=== PATIENT | male | born 1955 | race Hispanic/Latino ===

== ENCOUNTER 2016-06-09 15:27 | Emergency (ER) | payer MEDICARE ==
[2016-06-09 17:04] LABS: Hematocrit 36.2 % (35.5-45.6); Mean Corpuscular HGB Conc 33 % (32-34); Mean Corpuscular Hemoglobin 29 pg (28-32); Mean Corpuscular Volume 87 fl (84-94); Platelet Count 442 K/mm3 (140-440); Red Blood Count 4.17 M/mm3 (3.65-5.03); Red Cell Distribution Width 15.9 % (13.2-15.2); White Blood Count 8.4 K/mm3 (4.5-11.0)
--- NOTE | 2016-06-09 17:15 | Emergency Department Report ---
Chief Complaint: Chest Pain Stated Complaint: CHEST PAIN Time Seen by Provider: 06/09/16 17:03 - HPI History of Present Illness: Patient is a 61-year-old male who presents to ED complaining of left-sided pressure sharp type chronic chest pain and chronic hip leg and neck pain. Patient states he has an appointment with pain management doctor Evelyne on Thursday. Patient describes pain as throbbing and just all over his low back hips leg neck and arms. She denies any weakness headaches blurry vision. Patient states he he is having a panic attack due to his history of anxiety. Patient denies fever chills nausea vomiting abdominal pain shortness of breath. - ROS Review of Systems: As noted in HPI - Exam Vital Signs: Vital Signs 06/09/16 15:33 Temperature 98.5 F Pulse Rate 104 H Respiratory 20 Rate Blood Pressure 134/96 O2 Sat by Pulse 95 Oximetry Physical Exam: GENERAL: Alert and oriented x3, no apparent distress, Normal Gait, atraumatic. LUNGS: Symetrical with respiration, No wheezing, no rales or crackles, CTAB. HEART: S1, S2 present, regular rate and rhythm without murmur, no rubs, no gallops. ABDOMEN: No organomegaly was noted,Positive bowel sounds, soft, and non- distended. . Nontender to palpation on all Quadrants, NO CVA tenderness. MSE screening note: Focused history and physical exam performed. Due to findings the following was ordered: ED Medical Decision Making - Medical Decision Making Pulse 104 otherwise vital signs stable. Patient is alert and oriented 3. Patient is on any distress. Labs pending. EKG normal sinus rhythm. Patient to be seen by ED physician. ED Disposition for MSE Condition: Stable
[2016-06-09 17:21] LABS: Anion Gap 19 mmol/L; BUN/Creatinine Ratio 13.75; Blood Urea Nitrogen 11 mg/dL (9-20); Calcium 9.8 mg/dL (8.4-10.2); Carbon Dioxide 28 mmol/L (22-30); Chloride 96.3 mmol/L (98-107); Glucose 94 mg/dL (75-100); Potassium 4.7 mmol/L (3.6-5.0); Sodium 139 mmol/L (137-145)
[2016-06-10] MEDS ORDERED: ATIVAN PO ONE (03:46)
[2016-06-10] MEDS ORDERED: DILAUDID IM ONE (03:46)
--- NOTE | 2016-06-10 03:53 | Emergency Department Report ---
ED General Adult HPI - General Chief complaint: Chest Pain Stated complaint: CHEST PAIN Time Seen by Provider: 06/10/16 02:29 Source: patient Mode of arrival: Ambulatory Limitations: No Limitations - History of Present Illness Initial comments: 61-year-old male presents to the emergency department complaining of exacerbation of his chronic low back pain and panic attacks. Patient states the past 2 days been having pain in his lower back that radiates to his bilateral hips and down his left leg. He also reports pain in both shoulders. Patient reports he has been in pain management before but is currently not seeing anyone. Patient reports the pain is causing his panic attacks. He reports tightness in his chest and difficulty breathing. He states he was unable to attend any group sessions yesterday due to symptoms. Patient is a resident at the [facility]. There are no other complaints. -: Gradual, days(s) (2) Location: back, left, right, upper extremity, lower extremity Severity scale (0 -10): 10 Quality: aching Consistency: constant Improves with: none Worsens with: none Associated Symptoms: chest pain, shortness of breath Treatments Prior to Arrival: none - Related Data Previous Rx's Medication Instructions Recorded Last Taken Type Acetaminophen with Codeine 1 tab PO Q6HR #12 tab 05/19/16 Unknown Rx [Acetaminophen-Codeine #4 TAB] HYDROcodone/APAP 5-325 [[place] 1 each PO Q6HR PRN #30 tablet 06/10/16 Unknown Rx 5/325] LORazepam [Ativan] 1 mg PO BID #14 tab 06/10/16 Unknown Rx Allergies Allergy/AdvReac Type Severity Reaction Status Date / Time aspirin Allergy Angioedema Verified 12/26/13 11:15 ibuprofen Allergy Angioedema Verified 12/26/13 11:15 naproxen [From Naprosyn] Allergy Angioedema Verified 12/26/13 11:15 NSAIDS (Non-Steroidal Allergy Angioedema Verified 12/26/13 11:15 Anti-Inflamma ED Review of Systems ROS: Stated complaint: CHEST PAIN Other details as noted in HPI Comment: All other systems reviewed and negative Respiratory: shortness of breath Cardiovascular: chest pain Musculoskeletal: as per HPI, back pain ED Past Medical Hx - Past Medical History Previous Medical History?: Yes Hx Diabetes: Yes Hx Psychiatric Treatment: Yes Additional medical history: high cholesterol, decreased hearing acuity, anxiety , chronic pain - Surgical History Past Surgical History?: Yes Additional Surgical History: right knee, back surgery - Family History Family history: no significant - Social History Smoking Status: Never Smoker Substance Use Type: None - Medications Home Medications: Home Medications Medication Instructions Recorded Confirmed Last Taken Type Acetaminophen with Codeine 1 tab PO Q6HR #12 tab 05/19/16 Unknown Rx [Acetaminophen-Codeine #4 TAB] HYDROcodone/APAP 5-325 [[place] 1 each PO Q6HR PRN #30 tablet 06/10/16 Unknown Rx 5/325] LORazepam [Ativan] 1 mg PO BID #14 tab 06/10/16 Unknown Rx ED Physical Exam - General Limitations: No Limitations General appearance: alert, in no apparent distress - Head Head exam: Present: atraumatic, normocephalic - Eye Eye exam: Present: normal appearance, PERRL, EOMI - ENT ENT exam: Present: normal exam, normal orophraynx, mucous membranes moist - Neck Neck exam: Present: normal inspection, full ROM. Absent: tenderness - Respiratory Respiratory exam: Present: normal lung sounds bilaterally. Absent: respiratory distress - Cardiovascular Cardiovascular Exam: Present: regular rate, normal rhythm, normal heart sounds - GI/Abdominal GI/Abdominal exam: Present: soft, normal bowel sounds. Absent: distended, tenderness - Extremities Exam Extremities exam: Present: normal inspection, full ROM. Absent: tenderness - Back Exam Back exam: Present: normal inspection, full ROM, tenderness, paraspinal tenderness (lumbar). Absent: vertebral tenderness - Neurological Exam Neurological exam: Present: alert, oriented X3. Absent: motor sensory deficit - Skin Skin exam: Present: warm, dry, intact ED Course Vital Signs 06/09/16 06/09/16 06/10/16 15:33 22:23 00:57 Temperature 98.5 F 98.0 F 98.4 F Pulse Rate 104 H 89 88 Respiratory 20 20 18 Rate Blood Pressure 134/96 117/83 Blood Pressure 139/79 [Left] O2 Sat by Pulse 95 99 97 Oximetry 06/10/16 06/10/16 06/10/16 01:25 01:43 03:11 Temperature Pulse Rate 79 78 Respiratory 18 18 18 Rate Blood Pressure Blood Pressure 136/70 139/79 [Left] O2 Sat by Pulse 100 100 97 Oximetry ED Medical Decision Making - Lab Data Result diagrams: 06/09/16 16:49 06/09/16 16:49 - EKG Data -: EKG Interpreted by Me EKG shows normal: sinus rhythm, axis, intervals, QRS complexes, ST-T waves Rate: normal - EKG Data When compared to previous EKG there are: previous EKG unavailable Interpretation: normal EKG - Medical Decision Making Laboratory results reviewed and discussed with the patient. Patient has had a normal ECG and 2 negative troponins, making a cardiac etiology of his chest pain unlikely. Giving the patient an oral dose of Ativan and then intramuscular dose of Dilaudid. Patient will be discharged to follow up with pain management. - Differential Diagnosis exacerbation of chronic pain, anxiety, atypical chest pain Critical care attestation.: If time is entered above; I have spent that time in minutes in the direct care of this critically ill patient, excluding procedure time. ED Disposition Clinical Impression: Anxiety Chronic low back pain Qualifiers: Back pain laterality: bilateral Sciatica presence: without sciatica Qualified Code(s): M54.5 - Low back pain; G89.29 - Other chronic pain Disposition: DISCHARGED TO HOME OR SELFCARE Is pt being admited?: No Condition: Stable Instructions: Chronic Back Pain (ED), Anxiety (ED) Prescriptions: LORazepam [Ativan] 1 mg PO BID #14 tab HYDROcodone/APAP 5-325 [[place] 5/325] 1 each PO Q6HR PRN #30 tablet PRN Reason: Pain Referrals: PRIMARY CARE,MD [Primary Care Provider] - 3-5 Days Time of Disposition: 03:54
[2016-06-10 04:12] VITALS: BP 104/68
== END 2016-06-10 04:13 | disposition home or self-care (01) ==
LOC: ED 15:27
DX: M54.5 Low back pain (principal); G89.29 Other chronic pain; R07.9 Chest pain, unspecified; F41.9 Anxiety disorder, unspecified; E11.9 Type 2 diabetes mellitus without complications; E78.00 Pure hypercholesterolemia, unspecified; Z88.6 Allergy status to analgesic agent
CPT/HCPCS: 36415; 80048; 84484; 85025; 93005; 93010; 96372; 99284; J1170

== ENCOUNTER 2016-06-18 08:40 | Inpatient (IN) | payer MEDICARE ==
[2016-06-18] MEDS ORDERED: DUONEB 0.5 MG-3 MG/3 ML SOLN IH ONE ×2 (11:43)
[2016-06-18] MEDS ORDERED: NACL 0.9% 500 ML 500 ML IV ONE (11:50)
[2016-06-18] MEDS ORDERED: NACL 0.9% 1000 ML 1,000 ML IV ONE (11:50)
[2016-06-18] MEDS ORDERED: NACL 0.9% 1000 ML 1,000 ML ONE (12:21)
[2016-06-18] MEDS ORDERED: NACL 0.9% 500 ML 500 ML ONE (12:21)
[2016-06-18] MEDS ORDERED: LEVAQUIN 750MG/150ML 750 MG/150 ML BAG IV ONE ×2 (12:22→16:17)
[2016-06-18] MEDS ORDERED: PROVENTIL IH PRN (14:35)
--- NOTE | 2016-06-18 14:40 | History and Physical Report ---
History of Present Illness Date of examination: 06/18/16 Chief complaint: Dizziness with Shortness breath History of present illness: Dizzy Past History Past Medical History: other (as HPI) Past Surgical History: Other (right knee surgery and 2 back surgeries) Social history: full code. denies: smoking, alcohol abuse, prescription drug abuse, IV drug use Family history: CAD (father), cancer (mother) Medications and Allergies Allergies Allergy/AdvReac Type Severity Reaction Status Date / Time aspirin Allergy Angioedema Verified 12/26/13 11:15 ibuprofen Allergy Angioedema Verified 12/26/13 11:15 naproxen [From Naprosyn] Allergy Angioedema Verified 12/26/13 11:15 NSAIDS (Non-Steroidal Allergy Angioedema Verified 12/26/13 11:15 Anti-Inflamma Home Medications Medication Instructions Recorded Confirmed Last Taken Type Acetaminophen with Codeine 1 tab PO Q6HR #12 tab 05/19/16 Unknown Rx [Acetaminophen-Codeine #4 TAB] HYDROcodone/APAP 5-325 [[place] 1 each PO Q6HR PRN #30 tablet 06/10/16 Unknown Rx 5/325] LORazepam [Ativan] 1 mg PO BID #14 tab 06/10/16 Unknown Rx Active Meds: Active Medications Acetaminophen/Hydrocodone Bitart ([place] 5/325) 1 each PO Q6HR PRN PRN Reason: Pain Albuterol (Proventil) 2.5 mg IH Q4HRT PRN PRN Reason: Shortness Of Breath Albuterol/Ipratropium (Duoneb 0.5 Mg-3 Mg/3 Ml Soln) 1 ampul IH QIDRT VAL Heparin Sodium (Porcine) (Heparin) 5,000 unit SUB-Q Q8HR VAL Levofloxacin/Dextrose (Levaquin 750mg/150ml) mls @ 100 mls/hr IV Q24HR VAL PRN Reason: Protocol Lorazepam (Ativan) 1 mg PO BID VAL Review of Systems All systems: negative (as HPI and all other ROS reviewed and negative.) Exam - Physical Exam Narrative exam: Vital signs: Temperature 102.1F orally pulse 116 respirations 22 blood pressure 125/80 95% room air GEN: Ill-appearing NAD, AWAKE, ALERT, ORIENTATED 3 but he is lethargic HEENT: NCAT, PERRL, EOMI, OP CLEAR NECK: SUPPLE, NO THYROMEGALY, NO JVD, NO LAD CVS: Regular tachycardic, NORMAL S1S2 LUNGS/CHEST: Coarse breath sounds on the right, bibasilar fine crackles NORMAL CHEST EXPANSION B, GOOD AIR ENTRY B ABD: SOFT NTND, GBS, NO REBOUND OR GUARDING EXT/SKIN: NO SIGNIFICANT EDEMA OR RASH MSK: FROM X 4 EXTREMITIES NEURO: CN 2-12 GROSSLY INTACT, NO FOCAL DEFICITS PSY: CALM Results - Imaging and Cardiology EKG: image reviewed Chest x-ray: image reviewed Assessment and Plan Patient is a 61-year-old man with a history of chronic back pain who presents with lightheadedness, dizziness with progressively worse severe constant shortness of breath is started today without aggravating or relieving factors. Last couple days he was having progressively worsening productive cough of thick clear sputum. Initially he was highly altered and confused for now use waking up after IV fluids and IV antibiotics in emergency department. His temperature was found to be 102.1F. After IV antibiotics patient started to be less lethargic and give good history. He denies any chest pain, severe headaches nausea vomiting. He denies any alcohol abuse. But he has been taking narcotics and recently run out and he has appointment with her pain doctor on Thursday. UDS was ordered. Nonetheless, [facility] electronic medical record has been down so results are delayed. 1. Acute hypoxic respiratory failure: Treat with oxygen 2. Sepsis due to pneumonia: IV antibiotics, blood cultures 3. Acute encephalopathy due to above 4. Chronic pain syndrome on narcotics: Watch for withdrawals
--- NOTE | 2016-06-18 14:41 | Admit Criteria Form ---
Admission Criteria Documentation: SEPSIS and OTHER FEBRILE ILLNESS, W/O FOCAL INFECTION Clinical Indications for Admission to Inpatient Care ( Place 'X' for any and all applicable criteria): Admission is indicated for ANY ONE of the following (1)(2)(3)(4): [ ] I. Bacteremia [ ]II. Suspected or identified specific infection requiring hospitalization (eg, meningitis, endocarditis) [ ]III. Hemodynamic instability [ ]IV. Altered mental status [ ]V. Failure or unavailability of outpatient antimicrobial treatment [ ]. Hypoxemia [ ]VII. Seizures [ ]VIII. High-risk febrile neutropenia [ ]IX. Need for parenteral antibiotic in patient who is likely to abuse vascular access device (eg, injection drug user) [A](7) [ ]X. Temperature greater than 104.9 degrees F (40.5 degrees C) (oral) [ X]XI. Inpatient admission required rather than observation care because of ANY ONE of the following: [ X]1) Specific infection identified that is too severe for outpatient treatment or observation care trial [ ]2) Metabolic disorder (eg, hypoglycemia, hyperglycemia, metabolic acidosis) that is severe or persistent [ ]3) Temperature greater than 103.1 degrees F (39.5 degrees C) ( oral) that is not responsive to observation care treatment [ ]4) IV fluid to replace significant ongoing (eg, for over 24 hours) losses (> 3 L/m2 per day) [ ]5) Supplemental oxygen or respiratory treatments for over 24 hours that is performable only in acute inpatient setting [ ]6) Parenteral nutrition regimen need that must be implemented on inpatient basis [ ]7) Strict or protective (eg, laminar flow) isolation [ ]8) Other condition, treatment or monitoring requiring inpatient admission Extended stay beyond goal length of stay may be needed for(1)(3) [ ]a) Sepsis or septic shock(22) [ ]b) Positive blood cultures [ ]c) Insufficient oral intake [ ]d) High-risk febrile neutropenia(29)(30) [ ]e) Continued fever and clinical instability [ ]f) Clinically active comorbid illness (e.g,heart failure, renal failure , diabetes) The original [facility] content created by Katherine Maldonado has been revised. The portions of the content which have been revised are identified through the use of italic text or in bold, and Katherine Maldonado has neither reviewed nor approved the modified material. All other unmodified content is copyright [facility]. Please see references footnoted in the original [facility] edition 2016 Admission Criteria Met: Yes
--- NOTE | 2016-06-18 14:43 | Emergency Department Report ---
ED General Adult HPI - General Stated complaint: difficulty in breathing Time Seen by Provider: 06/18/16 14:32 - History of Present Illness Initial comments: She presents to the emergency department with difficulty in breathing. He was not aware of his fever but he was found to have a temperature of greater than 101. Denies chest pain he denies leg swelling. He's had no recent travel. He denies any calf or leg pain. He denies abdominal pain. He was not aware of any chills. He complained of some vague weakness. He did not have vertigo. -: days(s) Consistency: constant Improves with: none Worsens with: none Associated Symptoms: denies other symptoms, cough, shortness of breath - Related Data Previous Rx's Medication Instructions Recorded Last Taken Type Acetaminophen with Codeine 1 tab PO Q6HR #12 tab 05/19/16 Unknown Rx [Acetaminophen-Codeine #4 TAB] HYDROcodone/APAP 5-325 [[place] 1 each PO Q6HR PRN #30 tablet 06/10/16 Unknown Rx 5/325] LORazepam [Ativan] 1 mg PO BID #14 tab 06/10/16 Unknown Rx Allergies Allergy/AdvReac Type Severity Reaction Status Date / Time aspirin Allergy Angioedema Verified 12/26/13 11:15 ibuprofen Allergy Angioedema Verified 12/26/13 11:15 naproxen [From Naprosyn] Allergy Angioedema Verified 12/26/13 11:15 NSAIDS (Non-Steroidal Allergy Angioedema Verified 12/26/13 11:15 Anti-Inflamma ED Review of Systems ROS: Stated complaint: Other details as noted in HPI Constitutional: denies: chills, fever Eyes: denies: eye pain, eye discharge, vision change ENT: denies: ear pain, throat pain Respiratory: cough, shortness of breath, wheezing Cardiovascular: denies: chest pain, palpitations Endocrine: no symptoms reported Gastrointestinal: denies: abdominal pain, nausea, diarrhea Genitourinary: denies: urgency, dysuria Musculoskeletal: denies: back pain, joint swelling, arthralgia Skin: denies: rash, lesions Neurological: denies: headache, weakness, paresthesias Psychiatric: denies: anxiety, depression Hematological/Lymphatic: denies: easy bleeding, easy bruising ED Past Medical Hx - Past Medical History Hx Diabetes: Yes Hx Psychiatric Treatment: Yes Additional medical history: high cholesterol, decreased hearing acuity, anxiety , chronic pain - Surgical History Additional Surgical History: right knee, back surgery - Social History Smoking Status: Never Smoker Substance Use Type: None - Medications Home Medications: Home Medications Medication Instructions Recorded Confirmed Last Taken Type Acetaminophen with Codeine 1 tab PO Q6HR #12 tab 05/19/16 Unknown Rx [Acetaminophen-Codeine #4 TAB] HYDROcodone/APAP 5-325 [[place] 1 each PO Q6HR PRN #30 tablet 06/10/16 Unknown Rx 5/325] LORazepam [Ativan] 1 mg PO BID #14 tab 06/10/16 Unknown Rx ED Physical Exam - General General appearance: alert, in no apparent distress - Head Head exam: Present: atraumatic, normocephalic - Eye Eye exam: Present: normal appearance - ENT ENT exam: Present: mucous membranes moist - Neck Neck exam: Present: normal inspection - Respiratory Respiratory exam: Present: wheezes. Absent: respiratory distress - Cardiovascular Cardiovascular Exam: Present: regular rate, normal rhythm. Absent: systolic murmur, diastolic murmur, rubs, gallop - GI/Abdominal GI/Abdominal exam: Present: soft, normal bowel sounds. Absent: distended, tenderness, guarding, rebound, rigid - Rectal Rectal exam: Present: deferred - Extremities Exam Extremities exam: Present: normal inspection - Back Exam Back exam: Present: normal inspection - Neurological Exam Neurological exam: Present: alert, oriented X3, CN II-XII intact. Absent: motor sensory deficit - Psychiatric Psychiatric exam: Present: normal affect, normal mood - Skin Skin exam: Present: warm, dry, intact, normal color. Absent: rash ED Course - Reevaluation(s) Reevaluation #1: Patient was given nebs. His x-ray could not exclude a left lower lobe or retrocardiac filtrate due to technique although it was not grossly apparent. He was given IV antibiotics. He was admitted for further care and evaluation. 06/18/16 19:14 ED Medical Decision Making - Lab Data Laboratory Results - last 24 hr 06/18/16 13:54 Total Creatine Kinase 88 CK-MB (CK-2) 1.0 CK-MB (CK-2) Rel Index 1.1 Troponin T < 0.010 Sodium 133 chemistries otherwise within acceptable limits. White count was 14.2 hemoglobin 11.5 platelet count 354,000 Critical care attestation.: If time is entered above; I have spent that time in minutes in the direct care of this critically ill patient, excluding procedure time. ED Disposition Clinical Impression: COPD exacerbation, Febrile illness, acute, History of coronary artery disease, Hyponatremia Disposition: OP ADMITTED IP TO THIS HOSP Is pt being admited?: Yes Does the pt Need Aspirin: Yes Condition: Stable Instructions: Chronic Obstructive Pulmonary Disease (ED) Referrals: PRIMARY CARE, [Primary Care Provider] - 3-5 Days Time of Disposition: 19:20
[2016-06-18] MEDS: ATIVAN PO SCH ×2 (16:00→22:26)
[2016-06-18] MEDS: DUONEB 0.5 MG-3 MG/3 ML SOLN IH SCH ×2 (16:05→20:36)
--- NOTE | 2016-06-18 16:26 | XRay Report ---
Portable chest: The lungs do not appear fully inflated. There are no obvious infiltrates. The cardiac size is probably normal considering the degree of respiratory inflation. No evidence of congestion. Impression: Limited quality study with no gross abnormality.
[2016-06-18 17:45] LABS: Creatine Kinase 88 units/L (55-170)
[2016-06-18] MEDS: NORCO 5/325 PO PRN (21:00)
[2016-06-18 21:05] LABS: Basophils % (Auto) 0.6 % (0.0-1.8); Eosinophils % (Auto) 1.1 % (0.0-4.3); Hematocrit 35.5 % (35.5-45.6); Hemoglobin 11.3 gm/dl (11.8-15.2); Mean Corpuscular HGB Conc 32 % (32-34); Mean Corpuscular Hemoglobin 28 pg (28-32); Mean Corpuscular Volume 88 fl (84-94); Platelet Count 344 K/mm3 (140-440); Red Blood Count 4.04 M/mm3 (3.65-5.03); Red Cell Distribution Width 15.9 % (13.2-15.2); White Blood Count 11.8 K/mm3 (4.5-11.0)
[2016-06-18 23:12] LABS: Alanine Aminotransferase 22 units/L (7-56); Albumin 3.9 g/dL (3.9-5); Albumin/Globulin Ratio 1.6 %; Alkaline Phosphatase 86 units/L (35-129); Anion Gap 19 mmol/L; BUN/Creatinine Ratio 13.33; Bilirubin,Total 0.9 mg/dL (0.1-1.2); Blood Urea Nitrogen 12 mg/dL (9-20); Calcium 8.6 mg/dL (8.4-10.2); Carbon Dioxide 22 mmol/L (22-30); Chloride 103.7 mmol/L (98-107); Glucose 98 mg/dL (75-100); Potassium 4.4 mmol/L (3.6-5.0); Sodium 140 mmol/L (137-145); Total Protein 6.3 g/dL (6.3-8.2)
[2016-06-19 01:31] LABS: Creatine Kinase 68 units/L (55-170)
[2016-06-19 01:32] LABS: Creatine Kinase MB < 1.0 ng/mL (0.0-4.0)
[2016-06-19] MEDS: NORCO 5/325 PO PRN ×4 (06:13→21:05)
[2016-06-19 07:14] LABS: Hematocrit 33.8 % (35.5-45.6); Mean Corpuscular HGB Conc 33 % (32-34); Mean Corpuscular Hemoglobin 28 pg (28-32); Mean Corpuscular Volume 87 fl (84-94); Platelet Count 323 K/mm3 (140-440); White Blood Count 7.4 K/mm3 (4.5-11.0)
[2016-06-19 07:21] LABS: Anion Gap 19 mmol/L; BUN/Creatinine Ratio 13.75; Blood Urea Nitrogen 11 mg/dL (9-20); Calcium 8.5 mg/dL (8.4-10.2); Carbon Dioxide 22 mmol/L (22-30); Chloride 102.6 mmol/L (98-107); Glucose 96 mg/dL (75-100); Magnesium 2.1 mg/dL (1.7-2.3); Sodium 140 mmol/L (137-145)
[2016-06-19] MEDS: DUONEB 0.5 MG-3 MG/3 ML SOLN IH SCH ×3 (07:40→20:20)
[2016-06-19] MEDS: ATIVAN PO SCH ×2 (09:36→21:05)
[2016-06-19] MEDS: HEPARIN SUB-Q SCH ×3 (09:37→21:11)
[2016-06-19] MEDS: LEVAQUIN 750MG/150ML 750 MG/150 ML BAG IV SCH (11:14)
--- NOTE | 2016-06-19 14:28 | Progress Note ---
Assessment and Plan Assessment and plan: 1. Acute hypoxic respiratory failure due to sepsis present on admission secondary to pneumonia-continue current antibiotics. Follow up blood cultures, negative so far. Continue nebulization treatments. White count now normal. Wean oxygen as tolerated 2. Metabolic encephalopathy secondary to one above -resolved. 3. Chronic pain syndrome on narcotics: Watch for withdrawals 4. DVT prophylaxis-heparin Possibly discharge in the morning if continues to improve. History Interval history: f/u acute respiratory failure, pneumonia, sepsis Patient is seen at the bedside. Continues to cough up green sputum. Shortness of breath is improving Hospitalist Physical - Constitutional Vitals: Temp Pulse Resp BP Pulse Ox 98.1 F 94 H 18 101/61 92 06/19/16 07:45 06/19/16 14:00 06/19/16 14:00 06/19/16 07:45 06/19/16 07:45 General appearance: Present: no acute distress, well-nourished - EENT Eyes: Present: PERRL, EOM intact. Absent: scleral icterus, conjunctival injection ENT: hearing intact, clear oral mucosa, no oropharyngeal erythema, no poor dentition - Neck Neck: Present: supple, normal ROM. Absent: enlarged thyroid, masses or JVD - Respiratory Respiratory effort: normal Respiratory: bilateral: diminished, negative: rales, rhonchi, wheezing - Cardiovascular Rhythm: regular Heart Sounds: Present: S1 & S2. Absent: gallop - Extremities Extremities: no ischemia, pulses intact, pulses symmetrical, No edema Peripheral Pulses: within normal limits - Abdominal General gastrointestinal: soft, non-tender, non-distended - Integumentary Integumentary: Present: clear - Psychiatric Psychiatric: appropriate mood/affect, intact judgment & insight - Neurologic Neurologic: CNII-XII intact, moves all extremities Results - Labs CBC & Chem 7: 06/19/16 06:23 06/19/16 06:23 Labs: Laboratory Last Values WBC 7.4 K/mm3 (4.5-11.0) 06/19/16 06:23 RBC 3.90 M/mm3 (3.65-5.03) 06/19/16 06:23 Hgb 11.0 gm/dl (11.8-15.2) L 06/19/16 06:23 Hct 33.8 % (35.5-45.6) L 06/19/16 06:23 MCV 87 fl (84-94) 06/19/16 06:23 MCH 28 pg (28-32) 06/19/16 06:23 MCHC 33 % (32-34) 06/19/16 06:23 RDW 16.0 % (13.2-15.2) H 06/19/16 06:23 Plt Count 323 K/mm3 (140-440) 06/19/16 06:23 Lymph % (Auto) 18.7 % (13.4-35.0) 06/18/16 20:39 [place] % (Auto) 9.4 % (0.0-7.3) H 06/18/16 20:39 Eos % (Auto) 1.1 % (0.0-4.3) 06/18/16 20:39 Baso % (Auto) 0.6 % (0.0-1.8) 06/18/16 20:39 Lymph # 2.2 K/mm3 (1.2-5.4) 06/18/16 20:39 [place] # 1.1 K/mm3 (0.0-0.8) H 06/18/16 20:39 Eos # 0.1 K/mm3 (0.0-0.4) 06/18/16 20:39 Baso # 0.1 K/mm3 (0.0-0.1) 06/18/16 20:39 Seg Neutrophils % 70.2 % (40.0-70.0) H 06/18/16 20:39 Seg Neutrophils # 8.3 K/mm3 (1.8-7.7) H 06/18/16 20:39 Sodium 140 mmol/L (137-145) 06/19/16 06:23 Potassium 4.0 mmol/L (3.6-5.0) 06/19/16 06:23 Chloride 102.6 mmol/L (98-107) 06/19/16 06:23 Carbon Dioxide 22 mmol/L (22-30) 06/19/16 06:23 Anion Gap 19 mmol/L 06/19/16 06:23 BUN 11 mg/dL (9-20) 06/19/16 06:23 Creatinine 0.8 mg/dL (0.8-1.5) 06/19/16 06:23 Estimated GFR > 60 ml/min 06/19/16 06:23 BUN/Creatinine Ratio 13.75 % 06/19/16 06:23 Glucose 96 mg/dL (75-100) 06/19/16 06:23 Lactic Acid 1.6 mmol/L (0.7-2.0) 06/18/16 20:39 Calcium 8.5 mg/dL (8.4-10.2) 06/19/16 06:23 Magnesium 2.1 mg/dL (1.7-2.3) 06/19/16 06:23 Total Bilirubin 0.9 mg/dL (0.1-1.2) 06/18/16 20:39 AST 23 units/L (5-40) 06/18/16 20:39 ALT 22 units/L (7-56) 06/18/16 20:39 Alkaline Phosphatase 86 units/L (35-129) 06/18/16 20:39 Total Creatine Kinase 68 units/L (55-170) 06/19/16 00:55 CK-MB (CK-2) < 1.0 ng/mL (0.0-4.0) 06/19/16 00:55 CK-MB (CK-2) Rel Index 1.4 (0-4) 06/19/16 00:55 Troponin T < 0.010 ng/mL (0.00-0.029) 06/19/16 00:55 Total Protein 6.3 g/dL (6.3-8.2) 06/18/16 20:39 Albumin 3.9 g/dL (3.9-5) 06/18/16 20:39 Albumin/Globulin Ratio 1.6 % 06/18/16 20:39 TSH 0.736 mlU/mL (0.270-4.200) 06/19/16 06:23 Plasma/Serum Alcohol < 0.01 gm% (0-0.07) 06/18/16 10:26 Microbiology 06/18/16 Unknown Peripheral/Venous Blood Culture - Preliminary Culture in Progress 06/18/16 Unknown Peripheral/Venous Blood Culture - Preliminary Culture in Progress - Imaging and Cardiology Chest x-ray: report reviewed (Chest [id number] quality study with no gross abnormality)
[2016-06-19 15:33] LABS: Bilirubin,Urine NEG (Negative); Blood,Urine NEG (Negative); Ketones,Urine NEG (Negative); Leukocyte Esterase,Urine NEG (Negative); Nitrite,Urine NEG (Negative); Protein,Urine <15 mg/dL mg/dL (Negative); Urobilinogen,Urine < 2.0 mg/dL (<2.0)
[2016-06-19 16:13] LABS: WBC,Urine < 1.0 /HPF (0.0-6.0)
[2016-06-20] MEDS: NORCO 5/325 PO PRN ×3 (01:14→10:04)
[2016-06-20] MEDS: HEPARIN SUB-Q SCH ×2 (05:56→15:13)
[2016-06-20] MEDS: DUONEB 0.5 MG-3 MG/3 ML SOLN IH SCH ×2 (08:18→13:42)
[2016-06-20] MEDS: ATIVAN PO SCH (10:04)
--- NOTE | 2016-06-20 12:43 | Discharge Summary ---
Providers - Providers Date of Admission: 06/18/16 14:28 Date of discharge: 06/20/16 Attending physician: JAYLENE THOMAS Primary care physician: SILK BLOCKER Hospitalization Reason for admission: sepsis; pneumonia Condition: Stable Pertinent studies: cxr-limited; no gross abn Hospital course: Miss Crowe is a 61 yo M who presented to the ER with with shortness of breath and was diagnosed with sepsis secondary to pneumonia with acute respiratory failure. He also had metabolic encephalopathy. He was started on IV antibiotics. His sepsis and respiratory failure resolved. He also returned to his baseline mental state. Condition at discharge-stable 31 minutes spent preparing discharge Disposition: DC/TX PSY HOSP/PSY UNIT - Discharge Diagnoses (1) Sepsis Status: Acute Qualifiers: Sepsis type: S (2) COPD exacerbation Status: Acute (3) History of coronary artery disease Status: Acute (4) Hyponatremia Status: Acute (5) Anxiety Status: Acute (6) Chronic low back pain Status: Acute Qualifiers: Back pain laterality: bilateral Sciatica presence: without sciatica Sciatica laterality: S Qualified Code(s): M54.5 - Low back pain; G89.29 - Other chronic pain (7) Pneumonia Status: Acute Qualifiers: Pneumonia type: P Aspiration pneumonia type: A Laterality: L Lung location: L Core Measure Documentation - Palliative Care Palliative Care/ Comfort Measures: Not Applicable - Core Measures Any of the following diagnoses?: none Exam - Constitutional Vitals: Temp Pulse Resp BP Pulse Ox 97.7 F 87 16 109/64 99 06/20/16 07:27 06/20/16 08:28 06/20/16 08:28 06/20/16 07:27 06/20/16 07:27 General appearance: Present: no acute distress, well-nourished - EENT Eyes: Present: PERRL, EOM intact. Absent: scleral icterus, conjunctival injection ENT: hearing intact, clear oral mucosa, no oropharyngeal erythema, no poor dentition - Neck Neck: Present: supple, normal ROM. Absent: enlarged thyroid, masses or JVD - Respiratory Respiratory effort: normal Respiratory: negative: diminished, rales, rhonchi, wheezing - Cardiovascular Rhythm: regular Heart Sounds: Present: S1 & S2. Absent: gallop - Extremities Extremities: no ischemia, pulses intact, pulses symmetrical, No edema, normal temperature Peripheral Pulses: within normal limits - Abdominal General gastrointestinal: Present: soft, non-tender, non-distended Male genitourinary: Present: deferred - Rectal Rectal Exam: deferred - Integumentary Integumentary: Present: clear - Musculoskeletal Musculoskeletal: strength equal bilaterally - Psychiatric Psychiatric: appropriate mood/affect, intact judgment & insight - Neurologic Neurologic: CNII-XII intact, moves all extremities Plan Activity: advance as tolerated Diet: low cholesterol, low salt Follow up with: PRIMARY CARE, [Primary Care Provider] - 3-5 Days Prescriptions: Levofloxacin [Levaquin TAB] 500 mg PO QDAY #5 tablet
[2016-06-20 14:38] VITALS: BP 171/90
[2016-06-20] MEDS: LEVAQUIN 750MG/150ML 750 MG/150 ML BAG IV SCH (15:13)
== END 2016-06-20 15:28 | DRG 871 ==
LOC: ED 08:40 → 3A 14:28
PROVIDERS: ADMIT Internal Medicine; ATTEND Hospitalist
DX: A41.9 Sepsis, unspecified organism (principal); J96.01 Acute respiratory failure with hypoxia; G93.41 Metabolic encephalopathy; J18.9 Pneumonia, unspecified organism; J44.0 Chronic obstructive pulmonary disease with (acute) lower respiratory infection; J44.1 Chronic obstructive pulmonary disease with (acute) exacerbation; E87.1 Hypo-osmolality and hyponatremia; G89.4 Chronic pain syndrome; I25.10 Atherosclerotic heart disease of native coronary artery without angina pectoris; M54.5 Low back pain; F41.9 Anxiety disorder, unspecified; Z88.6 Allergy status to analgesic agent; Z88.1 Allergy status to other antibiotic agents; Z88.8 Allergy status to other drugs, medicaments and biological substances; Z82.49 Family history of ischemic heart disease and other diseases of the circulatory system; Z80.9 Family history of malignant neoplasm, unspecified
CPT/HCPCS: 36415; 71010; 80048; 80053; 80320; 81001; 82140; 82550; 82553; 82962; 83735; 84443; 84484; 85025; 85027; 87040; 87086; 93005; 93010; 94640; 96365; 96366; G0480; J1644; J1956; J7030; J7040